=== PATIENT | female | born 1940 | race Hispanic/Latino ===

== ENCOUNTER 2016-11-12 22:20 | Emergency (ER) | payer MEDICARE ==
[2016-11-12 22:24] VITALS: BP 135/77; PULSE 65; RESP 16; TEMP 97.8; O2SAT 100
--- NOTE | 2016-11-12 22:56 | ED PDOC ---
Lower Extremity Pain/Injury Time Seen by Provider: 11/12/16 22:32 Chief Complaint (Nursing): Lower Extremity Problem/Injury Chief Complaint (Provider): right ankle pain History Per: Patient History/Exam Limitations: no limitations Onset/Duration Of Symptoms: Hrs Current Symptoms Are (Timing): Still Present Additional History Per: Patient Additional Complaint(s): 76 y/o female history of hyperlipidemia presents with right ankle pain x 1 hour. Patient states she tripped over pot hole on street, twisting right ankle. Patient notes pain with weight bearing, lateral aspect. Denies numbness /weakness right lower extremity, limitation of movement. Past Medical History Reviewed: Historical Data, Nursing Documentation, Vital Signs Vital Signs: Last Vital Signs Temp 97.8 F 11/12/16 22:22 Pulse 65 11/12/16 22:22 Resp 16 11/12/16 22:22 BP 135/77 11/12/16 22:22 Pulse Ox 100 11/12/16 22:22 - Medical History PMH: Hyperlipidemia - Surgical History Other surgeries: hysterectomy - Family History Family History: States: No Known Family Hx - Living Arrangements Living Arrangements: With Family - Allergies Allergies/Adverse Reactions: Allergies Allergy/AdvReac Type Severity Reaction Status Date / Time No Known Allergies Allergy Verified 11/12/16 22:22 Review of Systems ROS Statement: Except As Marked, All Systems Reviewed And Found Negative Musculoskeletal: Positive for: Foot Pain (right ankle, right foot) Physical Exam - Reviewed Nursing Documentation Reviewed: Yes Vital Signs Reviewed: Yes - Physical Exam Appears: Positive for: Well, Non-toxic, No Acute Distress Head Exam: Positive for: ATRAUMATIC, NORMAL INSPECTION, NORMOCEPHALIC Skin: Positive for: Normal Color Pulses-Dorsalis Pedis (L): 2+ Pulses-Dorsalis Pedis (R): 2+ Pulses-Post. Tibialis (L): 2+ Pulses-Post. Tibialis (R): 2+ Extremity: Positive for: Normal ROM, Tenderness (right lateral malleolus, right proximal 3-5 metatarsals with + swelling. No deformity), Capillary Refill (<2 sec b/l LE) Neurologic/Psych: Positive for: Alert, Oriented. Negative for: Motor/Sensory Deficits - ECG O2 Sat by Pulse Oximetry: 100 - Other Rad xray right ankle X-Ray: Viewed By Co X-Ray Interpretation: no acute findings xray right foot X-Ray: Viewed By Me, Read By Radiologist X-Ray Interpretation: no acute findings - Progress ED Course And Treament: xrays Patient educated on findings, right foot wrapped in DOROTHY, air cast applied. Patient educated on findings, advised RICE, NSAIDs. Follow up PMD 2-3 days. Return to ED for worsening/concerning symptoms. Disposition - Clinical Impression Clinical Impression: Foot pain, right, Ankle pain, right - Patient ED Disposition Is Patient to be Admitted: No Counseled Patient/Family Regarding: Studies Performed, Diagnosis, Need For Followup - Disposition Disposition: Routine/Home Disposition Time: 00:14 Condition: IMPROVED Instructions: Ankle Sprain (ED), Foot Sprain (ED), RICE Therapy (ED) Forms: [employer] (Chinese)
--- NOTE | 2016-11-13 00:06 | RAD ---
EXAM: XR Right Foot Complete, 3 or More Views CLINICAL HISTORY: 76 years old, female; Pain; Foot; Right; Additional info: Twisted ankle, lateral pain TECHNIQUE: Frontal, lateral and oblique views of the right foot. COMPARISON: No relevant prior studies available. FINDINGS: Bones/joints: No acute fracture. No dislocation. Soft tissues: Unremarkable. IMPRESSION: 1. No fracture. 2. If pain persists, suggest splinting and follow up radiographs in 7-10 days.
--- NOTE | 2016-11-13 11:55 | RAD ---
PROCEDURE: Right Ankle Radiographs. HISTORY: twisted ankle, lateral pain COMPARISON: None FINDINGS: BONES: Normal. No fracture. JOINTS: Normal. No osteoarthritis. Ankle mortise maintained. Talar dome intact SOFT TISSUES: Soft tissue swelling laterally without distal fibular abnormality. OTHER FINDINGS: None. IMPRESSION: Soft tissue swelling without acute articular or osseous abnormality. No preliminary report provided by emergency department personnel.
== END 2016-11-13 00:29 | disposition home or self-care (01) ==
LOC: EDBD 22:20 → H.ER 22:20
DX: S99.911A Unspecified injury of right ankle, initial encounter (principal); W18.42XA Slipping, tripping and stumbling without falling due to stepping into hole or opening, initial encounter; Y93.9 Activity, unspecified; Y92.410 Unspecified street and highway as the place of occurrence of the external cause